=== PATIENT | male | born 1995 | race Caucasian/White ===

== ENCOUNTER 2018-06-18 21:35 | Emergency (ER) | payer OTHER ==
[~2018-06-18] VITALS: Ht 182.9 cm; Wt 121.6 kg
[2018-06-18 21:40] VITALS: BP 131/97
--- NOTE | 2018-06-18 23:09 | NUR ---
AMBULATED TO ER BED 11
--- NOTE | 2018-06-18 23:10 | NUR ---
22/M CAME IN ED, C/O 8 R HAND PAIN, NONRADIATING, X3 HRS. S/P FALL WITH SKATING ON PAVEMENT. R 3RD 4TH AND 5TH DIGIT AND KNUCKLES NOTED WITH SWELLING AND SLIGHT REDNESS, SMALL OPEN ABRASIONS NOTED. DECREASED ROM AND SENSATION ON 4TH AND 5TH R DIGITS. ER MADE AWARE.
[2018-06-18] MEDS ORDERED: IBUPROFEN 600 MG TAB PO ONE (23:50)
[2018-06-18] MEDS ORDERED: BACITRACIN OINT 500 UNITS/GM PKT TP ONE (23:50)
--- NOTE | 2018-06-19 00:15 | NUR ---
ULNER GUTTER SHORT SPLINT APPLIED TO PT R HAND AND ARM. STEVEN WRAP APPLIED FIRST AROUND WRIST AND 4TH AND 5TH FINGER FOR CUSHION, SPLINT APPLIED AND WRAPPED WITH STEVEN BANDAGE. +CSM DISTAL TO WRAP. PT INSTRUCTED TO KEEP HAND IN POSITION OF FUNCTION FOR APPROXIMATELY 10 TO 15 MINS WHILE ORTHO HARDENS. NOTICE GIVEN TO RN TO INSPECT SPLINT.
[2018-06-19 00:40] VITALS: BP 128/81
--- NOTE | 2018-06-19 00:40 | NUR ---
Patient discharged with v/s stable. Written and verbal after care instructions given and explained. Patient alert, oriented and verbalized understanding of instructions. Ambulatory with steady gait. All questions addressed prior to discharge. ID band removed. Patient advised to follow up with PMD. Rx of IBUPROFEN 600MG given. Patient educated on indication of medication including possible reaction and side effects. Opportunity to ask questions provided and answered.
--- NOTE | 2018-06-19 13:36 | NUR ---
ADDENDUM: [facility] CALLED FOR [facility]EPANC[facility]. RIGHT HAND XR DONE 06/18/18. REFERRED TO DR. [email or web address].
== END 2018-06-19 00:40 | disposition home or self-care (01) ==
LOC: MED 21:35
DX: S62.396A Other fracture of fifth metacarpal bone, right hand, initial encounter for closed fracture (principal); V00.131A Fall from skateboard, initial encounter; Y93.89 Activity, other specified; Y92.480 Sidewalk as the place of occurrence of the external cause; Y99.8 Other external cause status
CPT/HCPCS: 73130; 99284